=== PATIENT | male | born 1975 | race Hispanic/Latino ===

== ENCOUNTER 2022-07-22 08:11 | Emergency (ER) | payer SELFPAY ==
[2022-07-22] MEDS ORDERED: Tranexamic Acid 1,000 MG/10 ML VIAL ONE (08:42)
[2022-07-22] MEDS ORDERED: Lidocaine 1% w/Epinephrine 1:200K 30 ML VIAL ONE (08:42)
[2022-07-22] MEDS ORDERED: Ondansetron PF 4 MG/2 ML Vial ONE ×2 (08:43→09:39)
[2022-07-22 08:51] LABS: #Basophils 0.1 10x3/uL (0.0-0.2); #Monocytes 0.8 10x3/uL (0.0-1.1); #Neutrophils 16.9 10x3/uL (1.5-8.4); %Basophils 0.5 % (0.0-2.0); %Eosinophils 0.2 % (0.0-6.0); %Lymphocytes 6.6 % (18.0-47.0); %Monocytes 4.3 % (0.0-10.0); %Neutrophils 87.2 % (40.0-75.0); Hemoglobin 14.2 g/dL (13.5-17.5); Mean Corpuscular HGB CONC 35.9 g/dL (32.0-36.0); Mean Corpuscular Volume 86.5 fl (81.2-95.1); Mean Platelet Volume 11.6 fl (7.4-10.4); Platelet Count 281 10x3/uL (150-450); RBC Distribution Width 12.2 % (11.5-14.5); Red Blood Cell (RBC) Count 4.58 10x6/uL (4.32-5.72); White Blood Cell (WBC) Count 19.4 10x3/uL (3.5-10.5)
[2022-07-22 09:11] LABS: Acetaminophen Less than 10.0 mcg/mL (10.0-30.0); Alcohol 125 mg/dL (Less than 10); Salicylate Less than 8.0 mg/dL (15.0-30.0)
[2022-07-22 09:13] LABS: ALT (SGPT) 29 U/L (8-55); AST (SGOT) 16 U/L (5-34); Albumin 3.9 g/dL (3.5-5.0); Alkaline Phosphatase 86 U/L (40-110); Anion Gap 19 mmol/L (10-20); BUN (Urea Nitrogen) 9 mg/dL (8.9-20.6); Bilirubin, Total 0.5 mg/dL (0.2-1.2); Calc. Creatinine Clearance 0 mL/min (70-130); Calcium 8.4 mg/dL (7.8-10.44); Carbon Dioxide 14 mmol/L (22-29); Estimated GFR 89; Globulin 2.6 g/dL (2.4-3.5); Glucose 430 mg/dL (70-105); Protein, Total 6.5 g/dL (6.0-8.3)
[2022-07-22 09:47] LABS: Chloride 109 mmol/L (98-107); Potassium 4.1 mmol/L (3.5-5.1); Sodium 138 mmol/L (136-145)
[2022-07-22] MEDS ORDERED: Ketorolac Tromethamine 30 MG/ML VIAL ONE (10:42)
== END 2022-07-22 11:55 | disposition home or self-care (01) ==
LOC: CSHERS 08:11
DX: S93.401A Sprain of unspecified ligament of right ankle, initial encounter (principal); S09.93XA Unspecified injury of face, initial encounter; R04.0 Epistaxis; R73.9 Hyperglycemia, unspecified; X58.XXXA Exposure to other specified factors, initial encounter
CPT/HCPCS: 36415; 36430; 70450; 80053; 80307; 85025; 86850; 86900; 86901; 93005; 96361; 96374; 96375; 96376; J1885; J2405; P9016